=== PATIENT | male | born 1970 | race Caucasian/White ===

== ENCOUNTER 2017-10-15 09:31 | Outpatient (CLI) | END 2017-10-15 09:32 | disposition home or self-care (01) | LOC: LAB 09:31 | PROVIDERS: ATTEND Family Medicine | DX: E10.9 Type 1 diabetes mellitus without complications (principal); G62.89 Other specified polyneuropathies; I10 Essential (primary) hypertension | CPT/HCPCS: 36415; 80053; 82607; 83036; 83735; 84443; 85025; 85651 ==

== ENCOUNTER 2018-02-02 09:58 | Outpatient (CLI) | END 2018-02-02 09:59 | disposition home or self-care (01) | LOC: FCC-LAB 09:58 | PROVIDERS: ATTEND Family Medicine | DX: Z72.52 High risk homosexual behavior (principal); Z11.3 Encounter for screening for infections with a predominantly sexual mode of transmission; D64.9 Anemia, unspecified; E10.9 Type 1 diabetes mellitus without complications; E78.5 Hyperlipidemia, unspecified | CPT/HCPCS: 36415; 80053; 80061; 82043; 83037; 85025; 86592; 86695; 86696; 86803; 87389; 87800 ==

== ENCOUNTER 2019-02-07 10:44 | Outpatient (CLI) | END 2019-02-07 10:45 | disposition home or self-care (01) | LOC: RHC-LAB 10:44 → FCC-LAB 10:45 | PROVIDERS: ATTEND Family Medicine | DX: Z72.52 High risk homosexual behavior (principal); Z29.9 Encounter for prophylactic measures, unspecified; D64.9 Anemia, unspecified; E13.9 Other specified diabetes mellitus without complications; E87.5 Hyperkalemia; E78.5 Hyperlipidemia, unspecified; R80.9 Proteinuria, unspecified | CPT/HCPCS: 36415; 80053; 80061; 82043; 83037; 85025; 86592; 86704; 86705; 86706; 86803; 87340; 87389 ==

== ENCOUNTER 2019-02-20 13:52 | Outpatient (CLI) ==
--- NOTE | 2019-02-20 14:49 | US ---
EXAM: SCROTAL ULTRASOUND HISTORY: Epididymitis. Right testicular pain. FINDINGS: Scrotal ultrasound exam performed using real time campos-scale and color-flow Doppler imaging. The right testis measures 4.2 x 1.8 x 3.1 cm and the left measures 3.2 x 2.0 x 2.5 cm. Testes appear grossly normal with normal blood flow. No intratesticular mass or fluid collection narciso ntified. Epididymal tissue proper is within normal limits. There is mild right epididymal hyperemia . Small simple right hydrocele. No varicocele identified. IMPRESSION: 1. Findings which can be consistent with right epididymitis.
== END 2019-02-20 13:53 | disposition home or self-care (01) ==
LOC: RAD 13:52
PROVIDERS: ATTEND Family Medicine
DX: N45.1 Epididymitis (principal)